=== PATIENT | female | born 1975 | race Asian ===

== ENCOUNTER 2023-05-14 23:37 | Emergency (ER) | payer BC, OTHER ==
[~2023-05-14] VITALS: Ht 170.2 cm; Wt 58.1 kg
[2023-05-14 23:58] VITALS: BP_SYST 132; PULSE 80; RESP 16; TEMP 98.6; O2SAT 100
[2023-05-15] MEDS ORDERED: AUG875 PO (00:14)
[2023-05-15] MEDS ORDERED: AMOXICILLIN/POTASSIUM CLAV 875 MG TABLET PO ONE (00:15)
[2023-05-15] MEDS ORDERED: IBUPROFEN 600 MG TABLET PO ONE (00:15)
[2023-05-15] MEDS ORDERED: IBUP-1969 PO (00:15)
[2023-05-15 01:21] VITALS: BP_SYST 132; PULSE 80; RESP 16; TEMP 98.6; O2SAT 100
== END 2023-05-15 01:21 | disposition home or self-care (01) ==
LOC: SED 23:37
DX: S01.511A Laceration without foreign body of lip, initial encounter (principal); S01.531A Puncture wound without foreign body of lip, initial encounter; Z79.899 Other long term (current) drug therapy; W54.0XXA Bitten by dog, initial encounter; Y93.89 Activity, other specified; Y92.89 Other specified places as the place of occurrence of the external cause; Y99.8 Other external cause status
CPT/HCPCS: 99283